=== PATIENT | male | born 2000 | race Caucasian/White ===

== ENCOUNTER 2018-02-27 14:18 | Emergency (ER) | payer SELFPAY ==
[~2018-02-27] VITALS: Ht 182.9 cm; Wt 90.9 kg
[2018-02-27 15:23] LABS: BASOPHILS % 0.4 % (0.0-2.0); EOSINOPHILS % 1.2 % (0.0-5.0); HEMATOCRIT. 45.6 % (42.0-52.0); HEMOGLOBIN. 15.6 g/dL (14.0-18.0); LYMPHOCYTES % 26.6 % (20.0-50.0); MEAN CORPUSCULAR HEMOGLOBIN 30.2 pg (28.0-32.0); MEAN CORPUSCULAR VOLUME 88.2 fL (80.0-94.0); MEAN PLATELET VOLUME 8.9 fl (7.4-10.4); MONOCYTES % 7.4 % (2.0-8.0); NEUTROPHILS % 64.4 % (40.0-76.0); PLATELET 197 x1000/uL (130-400); RED BLOOD CELL COUNT 5.17 mill/uL (4.7-6.1); RED CELL DISTRIBUTION WIDTH 13.5 % (11.6-14.6)
[2018-02-27 15:29] LABS: CHLORIDE 107 mEq/L (98-107)
[2018-02-27 15:32] LABS: INR 1.2; PARTIAL THROMBOPLASTIN TIME 31.4 sec (23.4-31.0); PROTHROMBIN TIME 11.6 sec (9.1-11.1)
[2018-02-27 15:33] LABS: ETHANOL BLOOD < 10 mg/dL
[2018-02-27 15:44] LABS: *AMPHETAMINES SCREEN URINE NEGATIVE (NEGATIVE); *BARBITURATES SCREEN URINE NEGATIVE (NEGATIVE); *BENZODIAZEPINES SCREEN URINE NEGATIVE (NEGATIVE); *COCAINE SCREEN URINE NEGATIVE (NEGATIVE); METHADONE URINE SCREEN NEGATIVE (NEGATIVE); OPIATES URINE SCREEN NEGATIVE (NEGATIVE)
[2018-02-27 15:45] LABS: CANNABINOID URINE SCREEN NEGATIVE (NEGATIVE); PHENCYCLIDINE URINE SCREEN NEGATIVE (NEGATIVE)
[2018-02-27] MEDS ORDERED: IOHEXOL-350 100 ML BOTTLE ONE (16:58)
[2018-02-27] MEDS ORDERED: SODIUM CHLORIDE 0.9% 1,000 ML IV ONE (17:14)
[2018-02-27] MEDS ORDERED: KETOROLAC 30MG/ML VIAL IV ONE (17:15)
[2018-02-27 17:55] VITALS: BP 149/80
== END 2018-02-27 17:59 | disposition home or self-care (01) ==
LOC: ER 14:18 → CANBEDREQ 21:24
DX: R07.89 Other chest pain (principal); Z90.89 Acquired absence of other organs
CPT/HCPCS: 36415; 71045; 71275; 80053; 80305; 83690; 83880; 84484; 85025; 85610; 85730; 93005; 99284; G0482; J7030; Q9967